=== PATIENT | female | born 1955 | race Hispanic/Latino ===

== ENCOUNTER 2021-07-03 05:30 | Day surgery (SDC) | payer OTHER ==
[2021-07-02 15:45] LABS: BASOPHILS % (AUTO) 0.3 % (0.0-5.0); EOSINOPHILS % (AUTO) 0.6 % (0.0-8.0); MEAN CORPUSCULAR HEMOGLOBIN 30.8 pg (27.0-33.0); MEAN CORPUSCULAR HGB CONC 33.1 g/dL (32.0-36.0); MEAN CORPUSCULAR VOLUME 93.3 fL (79-99); MONOCYTES % (AUTO) 6.7 % (3.0-13.0); NEUTROPHILS % (AUTO) 62.1 % (40.0-77.0); PLATELET COUNT (AUTO) 368 K/uL (130-400); RED BLOOD CELL COUNT(AUTO) 3.86 MIL/uL (4.00-5.50); RED CELL DISTRIBUTION WIDTH 13.1 % (11.0-15.5)
[2021-07-02 15:58] VITALS: BP 144/73
[2021-07-03] VITALS (15 sets, daily range): BP systolic 128–146; BP diastolic 54–78
[~2021-07-03] VITALS: Ht 152.4 cm; Wt 61.4 kg
[~2021-07-03 05:30] MED LIST: ATOR40TA69 PO; LOSA100T58 PO; UBID30CA11 PO
[2021-07-03] MEDS ORDERED: LACTATED RINGERS 1000ML 1,000 ML IV ONE (06:18)
[2021-07-03] MEDS ORDERED: LACTATED RINGERS 1000ML 1,000 ML IV SCH (08:00)
[2021-07-03] MEDS ORDERED: METHYLENE BLUE 5 MG/ML AMP ONE (08:54)
[2021-07-03] MEDS ORDERED: MIDAZOLAM HCL 1 MG/ML 2ML VIAL ONE (09:37)
[2021-07-03] MEDS ORDERED: ROCURONIUM 10MG/1ML SYR 10 MG/ML ML ONE (09:37)
[2021-07-03] MEDS ORDERED: PROPOFOL 10 MG/ML 20ML VIAL IV ONE (09:37)
[2021-07-03] MEDS ORDERED: FENTANYL CITRATE PF 50 MCG/1 ML 2ML VIAL ONE (10:01)
[2021-07-03] MEDS ORDERED: EPHEDRINE SULFATE 50 MG/ML AMPULE ONE (10:01)
[2021-07-03] MEDS ORDERED: ONDANSETRON 4MG INJ ONE ×2 (10:24→11:43)
[2021-07-03] MEDS ORDERED: DEXAMETHASONE SOD PHOSPHATE 10MG/ML 1ML VIAL ONE (10:24)
[2021-07-03] MEDS ORDERED: MEPERIDINE-PF 25 MG/ML SYG ONE (11:00)
[2021-07-03] MEDS ORDERED: GLYCOPYRROLATE 1 MG/5 ML SYRINGE ONE (11:03)
[2021-07-03] MEDS ORDERED: NEOSTIGMINE 5MG/5ML SYR IV ONE (11:04)
[2021-07-03] MEDS ORDERED: KETOROLAC 15MG/ML VIAL (15MG/ML) ONE (11:39)
== END 2021-07-03 13:06 | disposition home or self-care (01) ==
LOC: DAH 05:30
PROVIDERS: ATTEND Obstetrics & Gynecology
DX: D27.1 Benign neoplasm of left ovary (principal); R10.2 Pelvic and perineal pain; Z20.822 Contact with and (suspected) exposure to COVID-19; N83.8 Other noninflammatory disorders of ovary, fallopian tube and broad ligament; N73.6 Female pelvic peritoneal adhesions (postinfective); I10 Essential (primary) hypertension; M06.9 Rheumatoid arthritis, unspecified; M81.0 Age-related osteoporosis without current pathological fracture; Z90.710 Acquired absence of both cervix and uterus; Z98.891 History of uterine scar from previous surgery; Z98.890 Other specified postprocedural states; Z79.01 Long term (current) use of anticoagulants
CPT/HCPCS: 36415; 58661; 85025; 86850; 86900; 86901; 87635; 88305; 88307; A4215 ×2; A4221; A4222; A4223; A4344; A4351; A4606; A4649 ×2; A4663; A6260; C1769 ×2; C9803; J1100; J1885; J2175; J2250; J2405 ×2; J2704; J2710; J3010; J3490 ×2; J7120; 93005; Q9968

== ENCOUNTER 2024-09-27 07:31 | Day surgery (SDC) | payer MEDICARE, OTHER ==
[~2024-09-27] VITALS: Ht 152.4 cm; Wt 61.2 kg
[2024-09-27] VITALS (11 sets, daily range): BP systolic 125–154; BP diastolic 61–76; PULSE 62–80; RESP 15–18; TEMP 97.3–97.7
[~2024-09-27 07:31] MED LIST changes: -LOSA100T58 PO; +LOSA100T59 PO
[2024-09-27] MEDS ORDERED: CHOL100046 PO (07:47)
[2024-09-27] MEDS ORDERED: AMLO-257 PO (07:47)
[2024-09-27] MEDS: 0.9%NACL 1000ML 1,000 ML IV ONE (08:00)
[2024-09-27] MEDS ORDERED: proPOFol 10 MG/ML 20ML VIAL IV ONE (08:57)
== END 2024-09-27 10:30 | disposition home or self-care (01) ==
LOC: ENDO 07:31 → DAH 07:31 → ENDO 10:30
PROVIDERS: ATTEND Internal Medicine
DX: Z12.11 Encounter for screening for malignant neoplasm of colon (principal); D12.3 Benign neoplasm of transverse colon; D12.4 Benign neoplasm of descending colon; D12.5 Benign neoplasm of sigmoid colon; K64.8 Other hemorrhoids; R10.10 Upper abdominal pain, unspecified; R11.0 Nausea; I10 Essential (primary) hypertension; F10.90 Alcohol use, unspecified, uncomplicated; E78.5 Hyperlipidemia, unspecified; B19.20 Unspecified viral hepatitis C without hepatic coma; Z90.710 Acquired absence of both cervix and uterus; Z87.891 Personal history of nicotine dependence; Z79.899 Other long term (current) drug therapy
CPT/HCPCS: 45380; 45385; J7030; J2704; A4620; A4215 ×3; A4223; A4222; A4221; A4663; A4606; J3490